=== PATIENT | female | born 1980 ===

== ENCOUNTER 2017-07-19 00:18 | Emergency (ER) | payer MEDICAID ==
[2017-07-19 00:25] VITALS: RESP 16
[2017-07-19] MEDS ORDERED: Sodium Chloride 0.9% 1,000 ML IV STA (00:53)
[2017-07-19 01:24] LABS: SQUAMOUS EPITHIAL 3 /hpf (0-5); URINE BACTERIA RARE (<OCC); URINE BILIRUBIN NEGATIVE (NEGATIVE); URINE BLOOD NEGATIVE (NEGATIVE); URINE CLARITY CLOUDY (Clear); URINE COLOR YELLOW (YELLOW); URINE GLUCOSE (UA) NEG (Normal); URINE LEUKOCYTE ESTERASE NEG Leu/uL (Negative); URINE PROTEIN NEGATIVE (NEGATIVE); URINE UROBILINOGEN 0.2-1.0 mg/dL (0.2-1.0)
--- NOTE | 2017-07-19 01:30 | ED PDOC ---
HPI: General Adult Time Seen by Provider: 07/19/17 00:35 Chief Complaint (Nursing): Female Genitourinary History Per: Patient Additional Complaint(s): Pt. states several hours [employer] she developed dysuria, frequency, and urgency. Shortly after she developed nausea and 4 episodes of non-bloody vomiting. Further reports she is currently taking Famciciclovir since 07/16/2017 for a R eye viral conjunctivitis prescribed by her eye doctor, Dr. Phipps. Reports redness and discharge are improving with medications. Denies flank pain, abdominal pain, hematuria, diarrhea, fever, visual changes, eye pain. Past Medical History Reviewed: Historical Data, Nursing Documentation, Vital Signs Vital Signs: Last Vital Signs Temp 98.2 F 07/19/17 00:22 Pulse 97 H 07/19/17 00:22 Resp 16 07/19/17 00:22 BP 144/88 07/19/17 00:22 Pulse Ox 97 07/19/17 04:00 - Medical History PMH: Back Problems, Depression - Surgical History Surgical History: Tonsillectomy - Family History Family History: States: No Known Family Hx - Home Medications Home Medications: Ambulatory Orders Medication Instructions Recorded Oxycodone Hydrochloride [Oxycontin] 20 mg PO BID #14 ter 09/04/14 diaZEpam [Valium] 5 mg PO Q6 PRN #10 tab 09/04/14 oxyCODONE/Acetaminophen [Percocet 1 ea PO Q6 #20 tab 09/04/14 5/325 mg Tab] Naproxen 500 mg PO BID PRN #30 tab 09/09/14 Oxycodone HCl/Acetaminophen 1 tab PO QID PRN #15 tab 09/09/14 [Percocet 325 mg-5 mg] Ciprofloxacin [Cipro] 500 mg PO BID #14 tab 07/19/17 Ibuprofen [Motrin Tab] 800 mg PO Q8 PRN #30 tab 07/19/17 Ondansetron ODT [Zofran ODT] 4 mg PO TID #21 odt 07/19/17 - Allergies Allergies/Adverse Reactions: Allergies Allergy/AdvReac Type Severity Reaction Status Date / Time Penicillins Allergy RASH Verified 07/19/17 00:22 Review of Systems ROS Statement: Except As Marked, All Systems Reviewed And Found Negative Gastrointestinal: Positive for: Nausea, Vomiting. Negative for: Abdominal Pain Genitourinary Female: Positive for: Dysuria, Frequency Physical Exam - Reviewed Nursing Documentation Reviewed: Yes Vital Signs Reviewed: Yes - Physical Exam Appears: Positive for: Well, Non-toxic, No Acute Distress Head Exam: Positive for: ATRAUMATIC, NORMAL INSPECTION, NORMOCEPHALIC Skin: Positive for: Normal Color, Warm. Negative for: Rash Eye Exam: Positive for: EOMI, PERRL, Conjunctival injection (R eye is injected; L eye WNL). Negative for: Nystagmus, Periorbital swelling, Periorbital tenderness, Scleral icterus Neck: Positive for: Normal, Painless ROM Cardiovascular/Chest: Positive for: Regular Rate, Rhythm Respiratory: Positive for: CNT, Normal Breath Sounds Gastrointestinal/Abdominal: Positive for: Normal Exam, Soft. Negative for: Tenderness Back: Positive for: Normal Inspection. Negative for: L CVA Tenderness, R CVA Tenderness Extremity: Positive for: Normal ROM Neurologic/Psych: Positive for: Alert, Oriented. Negative for: Aphasia, Facial Droop - Laboratory Results Result Diagrams: 07/19/17 01:26 07/19/17 01:26 - ECG O2 Sat by Pulse Oximetry: 97 - Progress ED Course And Treament: Labs, IV NS bolus x 1, zofran 4mg IV ordered. 0200 WBC: 22.8 Pt. c/o continued and worsened pelvic pain and urgency. Urine culture not obtained due insufficient amount of urine. Morphine 4mg IV, CT abd/pelvis w/ IV contrast, blood culture x 2, VBG ordered. 0250 Pain has improved. Pt. lying on stretcher and in no distress. Pending CT results. 0350 CT abd/pelvis w/ IV contrast: 1. LEFT hydroureteronephrosis without CT evidence of obstructing calculus. DDX: obstructing radiolucent stone, recently passed ureteral calculus, ureteral stricture, infection, obstructing ureteral mass. Clinical correlation and follow up are recommended. 2. Involuting or ruptured LEFT ovarian follicle/cyst. 3. Incidental/non-acute findings are described above Case d/w Dr. Otero who agrees with plan. Pt. in no distress. Reports no pain. States she is PCN allergic. Informed of results and instructed to f/u with Dr. Moe for further evaluation. Cipro IV ordered. Disposition - Clinical Impression Clinical Impression: Renal colic, Urinary tract infection - Patient ED Disposition Is Patient to be Admitted: No - Disposition Referrals: Wilian Faria MD [Primary Care Provider] - Adenike Moe MD [Medical Doctor] - Disposition: Routine/Home Disposition Time: 03:57 Condition: IMPROVED Additional Instructions: Follow up with Dr. Moe, urologist, for further evaluation. Return to ED immediately if symptoms persist or worsen. Prescriptions: Ciprofloxacin [Cipro] 500 mg PO BID #14 tab Ibuprofen [Motrin Tab] 800 mg PO Q8 PRN #30 tab PRN Reason: pain Ondansetron ODT [Zofran ODT] 4 mg PO TID #21 odt Instructions: Urinary Tract Infection, Adult (DC), Renal Colic (DC) Forms: [email or web address] (Hebrew)
[2017-07-19 01:35] LABS: BASO # 0.1 K/uL (0.0-0.2); BASO % 0.4 % (0.0-2.0); EOS # 0.2 K/uL (0.0-0.7); EOS % 0.7 % (0.0-4.0); HEMOGLOBIN 14.9 g/dL (12.0-16.0); LYMPH # 1.7 K/uL (1.0-4.3); LYMPH % 7.5 % (20.0-40.0); MEAN CELL VOLUME 87.5 fl (81.0-99.0); MEAN CORPUSCULAR HEMOGLOBIN 28.9 pg (27.0-31.0); MEAN PLATELET VOLUME 8.9 fl (7.2-11.7); MONO # 1.9 K/uL (0.0-0.8); MONO % 8.3 % (0.0-10.0); NEUT # 18.6 K/uL (1.8-7.0); NEUT % 83.1 % (50.0-75.0); PLATELET COUNT 350 K/uL (130-400); RBC 5.17 Mil/uL (3.80-5.20); RED CELL DISTRIBUTION WIDTH 14.6 % (11.5-14.5); WHITE BLOOD COUNT 22.3 K/uL (4.8-10.8)
[2017-07-19 01:47] LABS: ALB/GLOB RATIO 1.1 (1.0-2.1); ALBUMIN 4.1 g/dL (3.5-5.0); ALT/SGPT 52 U/L (9-52); AST/SGOT 33 U/L (14-36); BLOOD UREA NITROGEN 15 mg/dl (7-17); CALCIUM 9.2 mg/dL (8.4-10.2); GFR AFRICAN-AMERICAN > 60; GFR NON-AFRICAN AMERICAN > 60
[2017-07-19] MEDS ORDERED: Morphine 4 MG/ML VIAL ONE (02:00)
[2017-07-19] MEDS ORDERED: Iohexol 240 (50 ml) ONE (02:01)
[2017-07-19] MEDS ORDERED: Iohexol 300 100 ML IJ ONE (02:09)
[2017-07-19 02:30] LABS: VENOUS BLOOD GAS BASE EXCESS -4.9 mmol/L (0.0-2.0); VENOUS BLOOD GAS PCO2 35 mmHg (40-60); VENOUS BLOOD GAS PO2 65 mm/Hg (30-55); VENOUS BLOOD PH 7.36 (7.32-7.43)
[2017-07-19 03:28] LABS: SQUAMOUS EPITHIAL < 1 /hpf (0-5); URINE BILIRUBIN NEGATIVE (NEGATIVE); URINE BLOOD LARGE (NEGATIVE); URINE CLARITY SLIGHTY-CLOUDY (Clear); URINE COLOR YELLOW (YELLOW); URINE GLUCOSE (UA) 50 mg/dL (Normal); URINE LEUKOCYTE ESTERASE NEG Leu/uL (Negative); URINE PROTEIN NEGATIVE (NEGATIVE); URINE URIC ACID CRYSTALS OCC /hpf (<OCC); URINE UROBILINOGEN 0.2-1.0 mg/dL (0.2-1.0)
--- NOTE | 2017-07-19 03:35 | CT ---
EXAM: CT Abdomen and Pelvis With Intravenous Contrast CLINICAL HISTORY: 36 years old, female; Pain; Abdominal pain; Localized; Lower; Prior surgery; Surgery date: 6+ months; Surgery type: Back; Additional info: Pelvic pain; Dysuria TECHNIQUE: Axial computed tomography images of the abdomen and pelvis with intravenous contrast. All CT scans at this facility use one or more dose reduction techniques, viz.: automated exposure control; ma/kV adjustment per patient size (including targeted exams where dose is matched to indication; i.e. head); or iterative reconstruction technique. Coronal and sagittal reformatted images were created and reviewed. CONTRAST: 95 mL of [id number] administered intravenously. COMPARISON: No relevant prior studies available. FINDINGS: Lower thorax: No acute findings. ABDOMEN: Liver: Fatty infiltration. Gallbladder and bile ducts: No calcified stones. No ductal dilation. Pancreas: No ductal dilation. No mass. Spleen: No splenomegaly. Adrenals: No mass. Kidneys and ureters: Minimal stranding about LEFT kidney. Delayed enhancement/excretion of LEFT kidney. Mild pelvocaliectasis of LEFT kidney. Mildly dilated LEFT ureter. Stomach and bowel: No definite mural thickening. No obstruction. Appendix: Normal caliber. No inflammation. PELVIS: Bladder: Collapsed bladder, limiting evaluation. Reproductive: 1.4 x 1.3 x 1.6 cm peripherally enhancing hypodensity with crenulated margins within LEFT ovary. ABDOMEN and PELVIS: Intraperitoneal space: Trace free fluid within pelvis. No free air. Bones/joints: Postsurgical changes of lumbar spine. No acute fracture. Soft tissues: Unremarkable. Vasculature: Unremarkable. No aneurysm. Lymph nodes: No pathologically enlarged lymph nodes. IMPRESSION: 1. LEFT hydroureteronephrosis without CT evidence of obstructing calculus. DDX: obstructing radiolucent stone, recently passed ureteral calculus, ureteral stricture, infection, obstructing ureteral mass. Clinical correlation and follow up are recommended. 2. Involuting or ruptured LEFT ovarian follicle/cyst. 3. Incidental/non-acute findings are described above.
[2017-07-19 03:50] LABS: ANISOCYTOSIS SLIGHT; BANDS 1 % (0-2); BASOPHIL 1 % (0-2); LYMPHOCYTE 6 % (20-50); MONOCYTE 4 % (0-10); NEUTROPHIL 88 % (42-75); PLATELET ESTIMATE NORMAL (NORMAL); TOTAL CELLS COUNTED 100
[2017-07-19] MEDS ORDERED: Ciprofloxacin 400mg/200ml D5W 400 MG/200 ML BAG IVPB STA (03:50)
[2017-07-19 03:51] LABS: OVALOCYTES SLIGHT
[2017-07-19 06:37] VITALS: BP 139/80; PULSE 95; TEMP 97.7; O2SAT 98
== END 2017-07-19 06:38 | disposition home or self-care (01) ==
LOC: H.ER 00:18
DX: N39.0 Urinary tract infection, site not specified (principal); N23 Unspecified renal colic; B30.9 Viral conjunctivitis, unspecified; F32.9 Major depressive disorder, single episode, unspecified; Z88.0 Allergy status to penicillin
CPT/HCPCS: 74177; 80053; 81003; 81025; 82803; 85025; 87086; 96361; 96374; 96375; 99283; J0744; J2270; J2405; J7040; Q9967

== ENCOUNTER 2017-10-16 13:22 | Emergency (ER) | payer MEDICAID ==
[2017-10-16 13:46] VITALS: BP 136/91; PULSE 81; RESP 16; TEMP 98.1; O2SAT 100
--- NOTE | 2017-10-16 14:26 | ED PDOC ---
HPI: Back Time Seen by Provider: 10/16/17 13:56 Chief Complaint (Nursing): Back Pain Chief Complaint (Provider): Back Pain History Per: Patient History/Exam Limitations: no limitations Onset/Duration Of Symptoms: Hrs (this morning) Current Symptoms Are (Timing): Still Present Quality Of Discomfort: Aching Additional Complaint(s): 37 year old female with a history of chronic lower back pain and double lumbar spinal fusion presents to the ED with aching, lower back pain that radiates down to her legs since she awoke this morning. Patient reports that there is a feeling of "pins and needles" down both of her legs. She states that exacerbation of her chronic low back pain is often due to weather, but this pain is more intense and prolonged than previous episodes. Patient took Motrin and Gabapentin, which she had left over from a previous prescription, with no relief. Denies fever, sweats, unintentional weight loss, hematuria, dysuria, frequency, urinary or fecal incontinence and urinary retention. PMD: Dr. Faria ([place]) Past Medical History Reviewed: Historical Data Vital Signs: Last Vital Signs Temp 98.1 F 10/16/17 13:42 Pulse 81 10/16/17 13:42 Resp 16 10/16/17 13:42 BP 136/91 H 10/16/17 13:42 Pulse Ox 100 10/16/17 13:42 - Medical History PMH: Back Problems, Depression - Surgical History Surgical History: Tonsillectomy Other surgeries: double lumbar spinal fusion (3 years ago) - Family History Family History: States: CAD, Hypertension - Social History Current smoker - smoking cessation education provided: No (Vapes instead) Ex-Smoker (has not smoked in the last 12 months): Yes Alcohol: Occasional Drugs: Denies - Home Medications Home Medications: Ambulatory Orders Medication Instructions Recorded Oxycodone Hydrochloride [Oxycontin] 20 mg PO BID #14 ter 09/04/14 diaZEpam [Valium] 5 mg PO Q6 PRN #10 tab 09/04/14 oxyCODONE/Acetaminophen [Percocet 1 ea PO Q6 #20 tab 09/04/14 5/325 mg Tab] Naproxen 500 mg PO BID PRN #30 tab 09/09/14 Oxycodone HCl/Acetaminophen 1 tab PO QID PRN #15 tab 09/09/14 [Percocet 325 mg-5 mg] Ciprofloxacin [Cipro] 500 mg PO BID #14 tab 07/19/17 Ibuprofen [Motrin Tab] 800 mg PO Q8 PRN #30 tab 07/19/17 Ondansetron ODT [Zofran ODT] 4 mg PO TID #21 odt 07/19/17 Cyclobenzaprine [Flexeril] 5 mg PO Q8 PRN #15 tab 10/16/17 Gabapentin [Neurontin] 300 mg PO TID #30 cap 10/16/17 Ibuprofen [Motrin Tab] 600 mg PO Q8 PRN #30 tab 10/16/17 Lidocaine 5% [Lidoderm] 1 ea TD DAILY PRN #20 patch 10/16/17 - Allergies Allergies/Adverse Reactions: Allergies Allergy/AdvReac Type Severity Reaction Status Date / Time Penicillins Allergy RASH Verified 07/19/17 00:22 Review of Systems ROS Statement: Except As Marked, All Systems Reviewed And Found Negative Constitutional: Negative for: Fever, Sweats, Weight loss Genitourinary Female: Negative for: Dysuria, Frequency, Incontinence, Hematuria , Other (urine retention) Musculoskeletal: Positive for: Back Pain (aching lower back pain that radiates down her legs), Leg Pain (pain radating from back and "pins and needles" b/l) Physical Exam - Reviewed Nursing Documentation Reviewed: Yes Vital Signs Reviewed: Yes - Physical Exam Appears: Positive for: Well, In Acute Distress (mild painful distress) Head Exam: Positive for: ATRAUMATIC, NORMAL INSPECTION, NORMOCEPHALIC Skin: Positive for: Normal Color, Warm, Dry Eye Exam: Positive for: EOMI, Normal appearance, PERRL Gastrointestinal/Abdominal: Positive for: Normal Exam, Soft. Negative for: Tenderness, Mass, Guarding, Rebound Back: Positive for: Vertebral Tenderness (mild midline vertebral tenderness), Muscle Spasm (palpable muscle spasm in b/l lumbar paraspinal area). Negative for: L CVA Tenderness, R CVA Tenderness, Other (step off, crepitus and b/l straight leg raise ) Extremity: Positive for: Normal ROM (5/5 strength in plantar and dorsal flexion and EHL b/l). Negative for: Deformity Lymphatic: Negative for: Adenopathy Neurologic/Psych: Positive for: Alert, Oriented. Negative for: Motor/Sensory Deficits, Other (saddle anesthesia) - ECG O2 Sat by Pulse Oximetry: 100 (RA) Pulse Ox Interpretation: Normal Medical Decision Making Medical Decision Making: Time: 14:06 Impression: acute on chronic back pain initial Plan: --Urine preg --Urine dip --Flexeril 10 mg PO --Lidoderm 1 ea TD --Gabapentin 300 mg PO --Toradol 60 mg PO --Tylenol 975 mg PO Time: 15:44 --Patient continues to have some paresthesias but reports improvement of pain. Patient is stable and will be discharged home. Use prescriptions for Motrin, Gabapentin and Lidoderm patches as advised. Return to the ED if symptoms persist or worsen. Follow up with PMD by the end of this week without fail. Scribe Attestation: Documented by Clara Noble, acting as a scribe for Soledad Shin MD Provider Scribe Attestation: All medical record entries made by the Scribe were at my direction and personally dictated by me. I have reviewed the chart and agree that the record accurately reflects my personal performance of the history, physical exam, medical decision making, and the department course for this patient. I have also personally directed, reviewed, and agree with the discharge instructions and disposition. Disposition - Clinical Impression Clinical Impression: Low back pain Counseled Patient/Family Regarding: Studies Performed, Diagnosis, Need For Followup, Rx Given - Disposition Referrals: Wilian Faria MD [Staff Provider] - (FOLLOW UP WITH DR FARIA BY THE END OF THE WEEK FOR REEVALUATION) Disposition: Routine/Home Disposition Time: 15:12 Condition: IMPROVED Prescriptions: Cyclobenzaprine [Flexeril] 5 mg PO Q8 PRN #15 tab PRN Reason: muscle spasm Gabapentin [Neurontin] 300 mg PO TID #30 cap Ibuprofen [Motrin Tab] 600 mg PO Q8 PRN #30 tab PRN Reason: Pain, Moderate (4-7) Lidocaine 5% [Lidoderm] 1 ea TD DAILY PRN #20 patch PRN Reason: PAIN Instructions: Low Back Pain (DC), Chronic Pain Forms: [facility] (Swedish), [facility] School/Work Excuse
[2017-10-16] MEDS ORDERED: Lidocaine 5% Patch TD ONE (14:28)
[2017-10-16] MEDS: Lidocaine 5% Patch TD STA (14:34)
== END 2017-10-16 16:16 | disposition home or self-care (01) ==
LOC: H.ER 13:22
DX: M54.5 Low back pain (principal); G89.29 Other chronic pain; F32.9 Major depressive disorder, single episode, unspecified; Z88.0 Allergy status to penicillin
CPT/HCPCS: 81025; 96372; 99283; J1885